=== PATIENT | male | born 1960 | race Caucasian/White ===

== ENCOUNTER 2024-03-25 11:59 | Emergency (ER) | payer MEDICARE ==
[2024-03-25] MEDS: EPINEPHrine 1 MG/ML SDV IM ONE (12:19)
[2024-03-25] MEDS: Famotidine 20 MG/2 ML SDV IVPUSH ONE (12:21)
[2024-03-25] MEDS: methylPREDNISolone Sodium Succinate 125 MG/2 ML SDV IVPUSH ONE (12:22)
[2024-03-25] MEDS: Sodium Chloride 0.9% 10 ML Syringe FLUSH PRN (12:22)
[2024-03-25] MEDS: diphenhydrAMINE 50 MG/ML SDV IVPUSH ONE (12:23)
== END 2024-03-25 14:18 | disposition home or self-care (01) ==
LOC: EDSEX 11:59 → JD.ED 11:59
DX: T63.441A Toxic effect of venom of bees, accidental (unintentional), initial encounter (principal); F17.210 Nicotine dependence, cigarettes, uncomplicated; I10 Essential (primary) hypertension; E11.9 Type 2 diabetes mellitus without complications; Z86.73 Personal history of transient ischemic attack (TIA), and cerebral infarction without residual deficits; Z79.899 Other long term (current) drug therapy; Z91.030 Bee allergy status
CPT/HCPCS: 96372; 96374; 96375; 99283-25; 99284; J0171; J1200; J2919; J3490